=== PATIENT | female | born 1985 | race Caucasian/White ===

== ENCOUNTER 2017-07-16 16:27 | Inpatient (IN) | payer OTHER ==
[2017-07-16] MEDS ORDERED: OLIVE OIL 118 ML BTL MISC PRN (17:00)
[2017-07-16] MEDS ORDERED: LIDOCAINE 1% 300 MG/30 ML SDV SC PRN (17:00)
[2017-07-16] MEDS ORDERED: IBUPROFEN 600 MG TAB PO PRN (17:00)
[2017-07-16] MEDS ORDERED: EPSOM SALT 454 GM TP PRN (17:00)
[2017-07-16] MEDS ORDERED: LR 1,000 ML IV PRN (17:00)
[2017-07-16] MEDS ORDERED: TERBUTALINE SULFATE 1 MG/ML VIAL IV PRN (17:00)
[2017-07-16] MEDS ORDERED: MISOPROSTOL 200 MCG TAB PR PRN (17:00)
[2017-07-16] MEDS ORDERED: OXYTOCIN/RINGERS LACTATE 1,000 ML IV PRN (17:00)
[2017-07-16] MEDS ORDERED: AMPICILLIN SODIUM 2 GM in NS 100 ML IV ONE (17:00)
[2017-07-16 17:15] LABS: PLATELET COUNT 211 10^3/uL (150-400)
[2017-07-16] MEDS ORDERED: OLIVE OIL 118 ML BTL ONE (18:52)
[2017-07-16] MEDS ORDERED: LIDOCAINE 1% 300 MG/30 ML SDV ONE (18:52)
[2017-07-16] MEDS ORDERED: AMMONIA AROMATIC 1 EACH AMP IH ONE (18:52)
[2017-07-16] MEDS ORDERED: TERBUTALINE SULFATE 1 MG/ML VIAL ONE (18:52)
[2017-07-16] MEDS ORDERED: MISOPROSTOL 200 MCG TAB ONE (18:53)
[2017-07-16] MEDS ORDERED: OXYTOCIN 10 UNIT/ML VIAL ONE (18:53)
--- NOTE | 2017-07-16 19:26 | PDGENHP ---
History and Physical - Chief Complaint Early labor - History of Present Illness 31 yo at 40w4d with LANDRY 07/12/17 by 7w6d US presented this evening with regular painful ctxs that started earlier this afternoon - still intact. She was checked in clinic at her appointment last week and was found to be 3cm, now 5cm here on admission. GBS positive in urine cx from first trimester - so will start Ampicillin. Overall uncomplicated - first w son Marques culminated in a post-dates IOL in which she had a long labor, ultimately needed Pit and epidural, but delivered vaginally. Gloria has Celiac dz (no meds) and also was found to have marginal cord insertion on her 20 wk scan - followed with growth US most recently 34 wks which demonstrated EFW 2447g 47%, post placenta no previa, SHU 16. History Information - Allergies/Home Medication List Allergies/Adverse Reactions: adhesive tape Allergy (Verified 07/16/17 19:08) gluten Allergy (Verified 07/16/17 19:08) lactase [From Dairy Aid] Allergy (Verified 07/16/17 19:09) Home Medications: Vitamins PO DAILY 12/18/14 [Last Taken 07/15/17 18:00] Dha 07/16/17 [Last Taken 07/15/17 19:00] I have personally reviewed and updated: family history, medical history, social history, surgical history Past Medical History: Celiac dz - Social History Smoking Status: Never smoked Review of Systems Review of Systems: ROS: 10pt was reviewed & negative except for what was stated in HPI & below Physical Exam Physical Exam: Appears uncomfortable, edward regulaly. Belly gravid, but soft, NT. Lab Data & Imaging Review 07/16/17 16:45 WBC 11.74 10^3/uL (3.80-9.50) H 07/16/17 16:45 RBC 4.89 10^6/uL (4.18-5.33) 07/16/17 16:45 Hgb 14.6 g/dL (12.6-16.3) 07/16/17 16:45 Hct 43.7 % (38.0-47.0) 07/16/17 16:45 MCV 89.4 fL (81.5-99.8) 07/16/17 16:45 MCH 29.9 pg (27.9-34.1) 07/16/17 16:45 MCHC 33.4 g/dL (32.4-36.7) 07/16/17 16:45 RDW 13.0 % (11.5-15.2) 07/16/17 16:45 Plt Count 211 10^3/uL (150-400) 07/16/17 16:45 MPV 11.1 fL (8.7-11.7) 07/16/17 16:45 Neut % (Auto) 80.0 % (39.3-74.2) H 07/16/17 16:45 Lymph % (Auto) 13.7 % (15.0-45.0) L 07/16/17 16:45 Ralls % (Auto) 4.9 % (4.5-13.0) 07/16/17 16:45 Eos % (Auto) 0.2 % (0.6-7.6) L 07/16/17 16:45 Baso % (Auto) 0.1 % (0.3-1.7) L 07/16/17 16:45 Nucleat RBC Rel Count 0.0 % (0.0-0.2) 07/16/17 16:45 Absolute Neuts (auto) 9.40 10^3/uL (1.70-6.50) H 07/16/17 16:45 Absolute Lymphs (auto) 1.61 10^3/uL (1.00-3.00) 07/16/17 16:45 Absolute Monos (auto) 0.57 10^3/uL (0.30-0.80) 07/16/17 16:45 Absolute Eos (auto) 0.02 10^3/uL (0.03-0.40) L 07/16/17 16:45 Absolute Basos (auto) 0.01 10^3/uL (0.02-0.10) L 07/16/17 16:45 Absolute Nucleated RBC 0.00 10^3/uL (0-0.01) 07/16/17 16:45 Immature Gran % 1.1 % (0.0-1.1) 07/16/17 16:45 Immature Gran # 0.13 10^3/uL (0.00-0.10) H 07/16/17 16:45 Patient ABO/Rh A POSITIVE 07/16/17 16:45 Antibody Screen NEGATIVE 07/16/17 16:45 Assessment & Plan Assessment: 31 yo at 40w4d here in early labor. Pt much prefers minimal intervention and expectant mgmt for now. Discussed possibility of Pitocin and AROM. Will start Ampicillin for GBS positive in UCx in early . OK for intermittent monitoring otherwise. Rh positive, Rubella immune. Celiac dz - no meds. JM
[2017-07-16] MEDS: AMPICILLIN SODIUM 1 GM in NS 50 ML IV SCH (21:24)
[2017-07-16] MEDS ORDERED: fentaNYL 200 MCG, BUPIVACAINE 0.5% 20 ML in NS 100 ML EP SCH (21:30)
[2017-07-16] MEDS ORDERED: PHENYLEPHRINE HCL 100 MCG/ML SYR IVP PRN (22:29)
[2017-07-16] MEDS ORDERED: NALOXONE HCL 0.4 MG/ML INJ IVP PRN (22:29)
[2017-07-16] MEDS ORDERED: ONDANSETRON 4 MG/2 ML VIAL IVP PRN (22:29)
--- NOTE | 2017-07-16 22:29 | PDANEPAE ---
ANE Past Medical History - Cardiovascular History Hx Hypertension: No Hx Arrhythmias: No Hx Chest Pain: No Hx Coronary Artery / Peripheral Vascular Disease: No Hx CHF / Valvular Disease: No Hx Palpitations: No - Pulmonary History Hx COPD: No Hx Asthma/Reactive Airway Disease: No Hx Recent Upper Respiratory Infection: No Hx Oxygen in Use at Home: No Hx Sleep Apnea: No - Endocrine History Hx Diabetes: No Hypothyroid: No Hyperthyroid: No Obesity: no - Chronic Pain History Chronic Pain: No ANE Review of Systems Review of Systems: ANE Patient History - Allergies Allergies/Adverse Reactions: adhesive tape Allergy (Verified 07/16/17 19:08) gluten Allergy (Verified 07/16/17 19:08) lactase [From Dairy Aid] Allergy (Verified 07/16/17 19:09) - Home Medications Home Medications: Vitamins PO DAILY 12/18/14 [Last Taken 07/15/17 18:00] Dha 07/16/17 [Last Taken 07/15/17 19:00] - Smoking Hx Smoking Status: Never smoked ANE Labs/Vital Signs - Labs Result Diagrams: 07/16/17 16:45 - Vital Signs Height: 170.18 cm Weight: 69.853 kg ANE Physical Exam - Airway Neck exam: FROM Mallampati Score: Class 1 Mouth exam: normal dental/mouth exam - Pulmonary Pulmonary: no respiratory distress - Cardiovascular Cardiovascular: regular rate and rhythym - ASA Status ASA Status: II ANE Anesthesia Plan Anesthesia Plan: epidural Urgent/Emergent Case: Merrill valle completed preop but documented later for safe timely pt care
[2017-07-16] MEDS ORDERED: fentaNYL 2MCG/ML/BUP 0.1% RTU 100 ML EP SCH (22:30)
[2017-07-17] MEDS: AMPICILLIN SODIUM 1 GM in NS 50 ML IV SCH (00:59)
--- NOTE | 2017-07-17 02:11 | OBDEL ---
Info Type: Vaginal Presentation at Delivery: Vertex L&D Analgesia/Anesthesia Type: Epidural GBS+: Yes Antibiotic Used for + GBS: Ampicillin (3 doses) Intrapartum Medications: Generic Name Dose Route Start Last Admin Trade Name Freq PRN Reason Stop Dose Admin Ampicillin Sodium 1 gm/ Sodium 50 mls @ 100 mls/hr 07/16/17 21:00 07/17/17 00 :59 Chloride IV 08/15/17 20:59 50 mls Q4H RAYRAY Administration Protocol Lactated Ringer's 1,000 mls @ 0 mls/hr 07/16/17 17:00 07/16/17 17:30 Lr IV 07/17/17 16:59 1,000 mls PRN PRN Administration SEE PROTOCOL CONDITIONS Protocol Per Protocol Discontinued Medications Generic Name Dose Route Start Last Admin Trade Name Freq PRN Reason Stop Dose Admin Ampicillin Sodium 2 gm/ Sodium 110 mls @ 220 mls/hr 07/16/17 17:00 07/16/17 17:30 Chloride IV 07/16/17 17:29 110 mls ONCE ONE Administration Protocol Indications for Delivery: Spontaneous Labor Vaginal Delivery - Delivery Provider Delivery Physician/CNM: Rajendra Escobar - Labor and Delivery Onset of Contractions Date: 07/16/17 Onset of Contractions Time: 17:52 Onset of Contractions Type: Spontaneous Rupture of Membranes Date: 07/17/17 Rupture of Membranes Time: 01:20 Rupture of Membranes Type: Artificial Amniotic Fluid Color: Clear Dilation Complete Date: 07/17/17 Dilation Complete Time: 12:50 Placenta Delivery Date: 07/17/17 Placenta Delivery Time: 01:47 Total Hours of Labor: 7 Non-surgical Procedures: Amniotomy Laceration: 2nd Degree Repair: 3-0 Vaginal Sponge Count Correct: Yes Vaginal Needle Count Correct: Yes Vaginal Sweep Performed: Yes EBL: 300 Delivery Events: None Cord Gases: Not sent - Medications Labor Augmentation/Induction Methods Used: None Data LANDRY: 07/12/17 Gestational Age: 40 week(s) and 5 day(s) [place] Delivery Date: 07/17/17 Delivery Time: 01:40 Sex of : Male Score (1 Min): 8 Score (5 Min): 9 Shoulder Dystocia Time Head Delivered: 01:40 Time Body Delivered: 01:40 ICD10 Worksheet Patient Problems: Problems Problem Status Onset SROM (spontaneous rupture of membranes) Acute (spontaneous vaginal delivery) Acute
[2017-07-17] MEDS ORDERED: BISACODYL 10 MG SUPP PR PRN (02:12)
[2017-07-17] MEDS ORDERED: SIMETHICONE 80 MG TAB CHEW PO PRN (02:12)
[2017-07-17] MEDS ORDERED: MAGNESIUM HYDROXIDE 30 ML UDCUP PO PRN (02:12)
[2017-07-17] MEDS ORDERED: ACETAMINOPHEN 325 MG TAB PO PRN (02:12)
[2017-07-17] MEDS ORDERED: POLYETHYLENE GLYCOL 3350 17 GM PKT PO PRN (02:12)
[2017-07-17] MEDS ORDERED: LACTULOSE 20 GM/30 ML UDCUP PO PRN (02:12)
[2017-07-17] MEDS ORDERED: HYDROCORTISONE 0.5% CREAM TP PRN (02:12)
[2017-07-17] MEDS ORDERED: DOCUSATE SODIUM 100 MG CAP PO PRN (02:12)
[2017-07-17] MEDS: IBUPROFEN 600 MG TAB PO PRN ×4 (02:21→20:57)
--- NOTE | 2017-07-17 07:11 | POSTANESTH ---
Post Anesthetic Evaluation Cardiovascular Status: Normal, Stable Respiratory Status: Normal, Stable Level of Consciousness/Mental Status: Can Participate in Eval Pain Control: Adequate, Prn Tx Ordered Nausea/Vomiting Control: Adequate, Prn Tx Ordered Complications Possibly Related to Anesthesia: None Noted
[2017-07-17] MEDS: SENNOSIDES/DOCUSATE SODIUM TAB PO SCH ×2 (08:28→20:57)
[2017-07-17] MEDS: oxyCODONE IR 5 MG TAB PO PRN (14:28)
--- NOTE | 2017-07-17 22:28 | OBPP ---
Progress Note Assessment/Plan: Assessment: [id number] s/p PPD#0 Plan: routine PP care ambulate/hydrate cont plan to d/c home 24-48hours Subjective/ Course: Pt doing well, she denies any pain or heavy bleeding. She is without difficulty. She has good support, mother is present at BS. Objective: 07/16/17 16:45 Patient ABO/Rh A POSITIVE 07/16/17 16:45 Temp Pulse Resp BP Pulse Ox 36.6 C 85 17 110/69 96 07/17/17 20:00 07/17/17 20:00 07/17/17 20:00 07/17/17 20:00 07/17/17 20:00 Uterine Position/Fundal Height: Umbilicus -1, Midline Uterine Tone: Firm
[2017-07-18] MEDS: oxyCODONE IR 5 MG TAB PO PRN (01:37)
[2017-07-18] MEDS: IBUPROFEN 600 MG TAB PO PRN ×2 (02:59→10:34)
--- NOTE | 2017-07-18 08:04 | OBPP ---
Progress Note Assessment/Plan: Assessment: s/p PPD # 1- pt is stable Plan: Continue routine pp care May go home today, still undecided Instructions reviewed with pt No Rx given Cont PNV, colace Pelvic rest RTC in 4 and 6 weeks for pp check 07/18/17 08:02 Subjective/ Course: Pt doing well, she denies any pain or heavy bleeding. She is without difficulty. She has good support, mother is present at BS. 07/18/17 08:03 Pt seen and examined. Doing well, with no complaints. The cramping is annoying, but relief with Motrin. Mod lochia. Pt is OOB, rashmi reg diet, voiding and passing flatus. No BM yet. BF going well so far. Considering going home today. Objective: 07/16/17 16:45 Patient ABO/Rh A POSITIVE 07/16/17 16:45 Temp Pulse Resp BP Pulse Ox 36.6 C 85 17 110/69 96 07/17/17 20:00 07/17/17 20:00 07/17/17 20:00 07/17/17 20:00 07/17/17 20:00 Uterine Position/Fundal Height: Umbilicus -2 Uterine Tone: Firm Physical Exam - Physical Exam Respiratory: lungs clear, normal breath sounds Cardiac/Chest: regular rate, rhythm Abdomen: normal bowel sounds, non-tender, soft, flatus (+) Extremities: non-tender, normal inspection Skin: normal color, warm/dry Neuro/Psych: alert, normal mood/affect, oriented x 3
--- NOTE | 2017-07-18 08:05 | OBGCSDC ---
General Delivery Information - General Info : 3 Para: 2 Abortions: 1 Type: Vaginal L&D Analgesia/Anesthesia Type: Epidural Admission Date: 07/16/17 Labs: Patient ABO/Rh A POSITIVE 07/16/17 16:45 Hct 43.7 % (38.0-47.0) 07/16/17 16:45 - Hospital Course : Pt doing well, she denies any pain or heavy bleeding. She is without difficulty. She has good support, mother is present at . 07/18/17 08:03 Pt seen and examined. Doing well, with no complaints. The cramping is annoying, but relief with Motrin. Mod lochia. Pt is OOB, rashmi reg diet, voiding and passing flatus. No BM yet. BF going well so far. Considering going home today. Vaginal - Delivery Provider Delivery Physician/CNM: Rajendra Escobar - Diagnosis Labor: Spontaneous Rupture of Membranes Type: Artificial Amniotic Fluid Color: Clear Laceration: 2nd Degree Repair: 3-0 Delivery Events: None - Procedures Non-surgical Procedures: Amniotomy - Delivery Non-surgical Procedures: Amniotomy EBL: 300 Data LANDRY: 07/12/17 Gestational Age: 40 week(s) and 6 day(s) Malone Delivery Date: 07/17/17 Delivery Time: 01:40 Sex of : Male Weight (gm): 3722 g Score (1 Min): 8 Score (5 Min): 9 Discharge Information - Discharge Information Condition: Good Instruction/Follow Up: Four Weeks, Six Weeks
[2017-07-18 08:09] VITALS: BP 112/81
[2017-07-18] MEDS: SENNOSIDES/DOCUSATE SODIUM TAB PO SCH (10:36)
== END 2017-07-18 17:00 | disposition home or self-care (01) | DRG 775 ==
LOC: FLD 16:27 → FOB 07-17 04:00
PROVIDERS: ADMIT Obstetrics & Gynecology; ATTEND Obstetrics & Gynecology
DX: O70.1 Second degree perineal laceration during delivery (principal); O99.820 Streptococcus B carrier state complicating pregnancy; Z3A.40 40 weeks gestation of pregnancy; Z37.0 Single live birth
CPT/HCPCS: J0290; J2590; J3010; J3105